=== PATIENT | female | born 1975 | race Two or more races ===

== ENCOUNTER 2017-11-24 13:17 | Inpatient (IN) | payer OTHER ==
[2017-11-24] MEDS ORDERED: IPRATROPIUM/ALBUTEROL 3 ML DEYVIAL ONE (16:09)
[2017-11-24] MEDS ORDERED: NS 1,000 ML IV ONE ×2 (16:17→18:44)
[2017-11-24] MEDS ORDERED: IPRATROPIUM/ALBUTEROL 3 ML DEYVIAL IH ONE (16:17)
--- NOTE | 2017-11-24 16:23 | EDPHY ---
H & P Stated Complaint: fever, cough, diarrhea Time Seen by Provider: 11/24/17 15:39 HPI/ROS: CHIEF COMPLAINT: Cough, shortness of breath HISTORY OF PRESENT ILLNESS: The patient is a 42 y/o female arriving with her complaining of diarrhea, fever, and cough over the last week. Last Thursday, 6 days ago, she developed non-bloody diarrhea, which has continued throughout the week. She reports episodes every 20 minutes, but several of these were actually just passing gas. By , she developed a fever that has increased throughout the weekend to as high as "104.9F." Two days ago she developed a dry cough and by last night she began to feel short of breath. Her says she slept in 20-minute increments due to her cough and shortness of breath and during coughing episodes it looks "like she's not getting enough air." Her fever is down to 100F today. She has not been using any antipyretics because she cannot swallow pills. She has associated myalgias. She also notes her menstrual period began last night and is much heavier than normal. She normally has regular periods and does not use oral control. She has not passed any clots. No respiratory disease history. No recent international travel. No chills, chest pain, palpitations, vomiting, abdominal pain, urinary complaints, headache, lightheadedness. REVIEW OF SYSTEMS: Aside from elements discussed in the HPI, a comprehensive 10-point review of systems was reviewed and is negative. PAST MEDICAL HISTORY: Denies SOCIAL HISTORY: at bedside. Smoker. Lives in [place]. No PCP. VITAL SIGNS: Reviewed by me. Tachycardic, temp 37.4, O2 sat 94%. GENERAL: Well-developed, well-nourished, frequent cough. HEENT: Atraumatic. Eyes: No icterus, no injection. Mouth: slightly dry mucous membranes. No erythema or lesions. Neck: supple with no adenopathy. LUNGS: Dimished breath sounds thoughout, slighly wheezy cough. Speaking in full sentences. CARDIAC: Tachycardic rate and regular rhythm, no rubs, murmurs or gallops. ABDOMEN: Soft, nontender, nondistended, bowel sounds normal. BACK: No CVA tenderness. EXTREMITIES: No trauma. No edema. Range of motion is normal throughout. NEURO: Alert and oriented, grossly nonfocal. SKIN: Warm and dry, no rash. PSYCHIATRIC: Normal mentation, no agitation. Portions of this note were transcribed by a medical coder. I personally performed a history, physical exam, medical decision making, and confirmed accuracy of information the transcribed note. - Personal History LMP (Females 10-55): Now Current Tetanus/Diphtheria Vaccine: No Current Tetanus Diphtheria and Acellular Pertussis (TDAP): No - Medical/Surgical History Hx Asthma: No Hx Chronic Respiratory Disease: No Hx Diabetes: No Hx Cardiac Disease: No Hx Renal Disease: No Hx Cirrhosis: No Hx Alcoholism: No Hx HIV/AIDS: No Hx Splenectomy or Spleen Trauma: No Other PMH: ovarian cyst - Social History Smoking Status: Current every day smoker Constitutional: Initial Vital Signs Temperature (C) 37.2 C 11/24/17 13:28 Heart Rate 112 H 11/24/17 13:28 Respiratory Rate 16 11/24/17 13:28 Blood Pressure 124/87 H 11/24/17 13:28 O2 Sat (%) 94 11/24/17 13:28 O2 Delivery Mode Nasal Cannula O2 (L/minute) 3 Allergies/Adverse Reactions: doxycycline Allergy (Verified 11/24/17 19:41) Vomiting Home Medications: Medication Instructions Recorded Acetaminophen [Tylenol 325mg (*)] 650 mg PO Q4HRS PRN tab 11/26/17 levOFLOXACIN [Levofloxacin] 750 mg PO DAILY #150 ml 11/26/17 Medical Decision Making - Diagnostics Imaging Results: CXR: Impression: 1. Left lower lobe consolidation/pneumonia posteriorly. 2. Prominence of perihilar interstitial markings and peribronchial cuffing. Findings are nonspecific but can be seen with underlying bronchitis, reactive airway disease, or viral process. Dictated By: Carlos Manuel Edmondson MD Imaging: I viewed and interpreted images myself ED Course/Re-evaluation: Plan for IV, sepsis labs, EKG, chest x-ray. Duo neb and 1L IV NS administered. Chest x-ray: left lower/posterior pneumonia. 750mg IV Levaquin administered. Lactic 1.2. Patient was in the process of being discharged and attempted to ambulate to the bathroom. She became lightheaded, near-syncopal, and tachycardic around 120. Reassessed patient and recommended admission, which she agrees to. Spoke with hospitalist service. Dr. Portillo accepts admission. Differential Diagnosis: Diff dx of patients symptom complex considered including but not limited to influenza, pneumonia, dehydration, volume loss, bronchitis, asthma exacerbation , copd exacerbation, URI. Consult/Admit Bed Type: Dr Portillo, [facility] - Data Points Laboratory Results: Laboratory Results 11/25/17 04:30 11/25/17 04:30 Microbiology Results: MICROBIOLOGY 11/24/17 16:17 Blood Blood Culture - Preliminary 11/24/17 17:15 Blood Blood Culture - Preliminary Medications Given: Discontinued Medications Albuterol/Ipratropium (Duoneb) 3 ml IH EDNOW ONE Stop: 11/24/17 16:18 Last Admin: 11/24/17 16:17 Dose: 3 ml Albuterol/Ipratropium (Duoneb) 3 ml IH Q6HRS EFRAIN Stop: 05/24/18 09:39 Last Admin: 11/26/17 12:49 Dose: Not Given Benzonatate (Tessalon Pearles) 100 mg PO TID PRN PRN Reason: Cough, Mild Stop: 05/23/18 23:34 Last Admin: 11/24/17 23:57 Dose: 100 mg Guaifenesin/Codeine Phosphate (Robitussin Ac) 10 ml PO Q6HRS PRN PRN Reason: Cough, Moderate Stop: 05/23/18 23:34 Last Admin: 11/26/17 11:27 Dose: 10 ml Sodium Chloride (Ns) 1,000 mls @ 0 mls/hr IV ONCE ONE PRN Reason: Wide Open Stop: 11/24/17 16:18 Last Admin: 11/24/17 16:17 Dose: 1,000 mls Levofloxacin/Dextrose (Levaquin 750 Mg (Premix)) 150 mls @ 100 mls/hr IV EDNOW ONE PRN Reason: Protocol Stop: 11/24/17 18:14 Last Admin: 11/24/17 17:13 Dose: 150 mls Sodium Chloride (Ns) 1,000 mls @ 0 mls/hr IV ONCE ONE PRN Reason: Wide Open Stop: 11/24/17 18:45 Last Admin: 11/24/17 18:45 Dose: 1,000 mls Lactated Ringer's (Lr) 1,000 mls @ 100 mls/hr IV CONT EFRAIN Stop: 05/24/18 00:29 Last Admin: 11/25/17 02:06 Dose: 1,000 mls Levofloxacin (Levaquin) 750 mg PO Q24H EFRAIN PRN Reason: Protocol Stop: 12/25/17 16:59 Last Admin: 11/25/17 17:24 Dose: 750 mg Ondansetron HCl (Zofran Odt) 4 mg PO Q6H PRN PRN Reason: Nausea/Vomiting, Use 1st Stop: 05/23/18 20:57 Last Admin: 11/24/17 21:16 Dose: 4 mg Departure - Departure Disposition: [facility] Inpatient Acute Clinical Impression: Pneumonia Qualifiers: Pneumonia type: due to unspecified organism Laterality: left Lung location: lower lobe of lung Qualified Code(s): J18.1 - Lobar pneumonia, unspecified organism Condition: Fair Report Scribed for: Dipika Santillan Report Scribed by: Aurora Dennis Date of Report: 11/24/17 Time of Report: 16:24
[2017-11-24 16:30] LABS: PLATELET COUNT 265 10^3/uL (150-400)
[2017-11-24 16:41] LABS: INR 1.2 (0.83-1.16); PROTIME(PATIENT) 15.4 SEC (12.0-15.0)
[2017-11-24] MEDS ORDERED: ONDANSETRON DISINTEGRATING 4 MG TAB PO PRN (20:58)
[2017-11-24] MEDS ORDERED: ACETAMINOPHEN 325 MG TAB PO PRN (23:31)
[2017-11-24] MEDS ORDERED: diphenhydrAMINE 25 MG CAP PO PRN (23:31)
[2017-11-24] MEDS ORDERED: ONDANSETRON 4 MG/2 ML VIAL IVP PRN (23:31)
[2017-11-24] MEDS ORDERED: BENZONATATE 100 MG CAP PO PRN (23:35)
[2017-11-25] MEDS ORDERED: LR 1,000 ML IV SCH (00:30)
[2017-11-25] MEDS: guaiFENesin/CODEINE PHOS 10 ML UDCUP PO PRN ×3 (02:06→20:38)
--- NOTE | 2017-11-25 05:09 | GHP ---
[f rep st] HISTORY AND PHYSICAL DATE OF ADMISSION: 11/24/2017 SOURCE: Patient provides history, appears reliable. at bedside supplements details. EMR re viewed and case discussed with accepting provider. CHIEF COMPLAINT: Cough and shortness of breath, diarrhea. HISTORY OF PRESENT ILLNESS: This is a very pleasant 42-year-old female with no significant past [facility] history, who presents to the emergency department with complaints of 24 hours of coughing, fever, diarrhea, and shortness of breath. Patient with a reported elevated temperature of 104 at home. Flavio glynn reports that she has been having some upper respiratory-type symptoms for the past week with pr ogressive shortness of breath in the last 24 hours. Patient also reports some increasing muscle ache s, particularly in her back, a headache that developed today worse with coughing. No changes in visi on or focal deficits. Patient also endorses heavier periods than previously experienced. Patient re ports that she has soaked through multiple pads today since her period started 24 hours. She has als o been passing some clots. She denies any abdominal pain and no more bloating than usual during her menstrual cycle. Patient also with history of recent increasing hot flashes and sweats. She denies any chills. Patient with multiple watery diarrhea. No melena or hematochezia are noted. REVIEW OF SYSTEMS: Negative except as noted above. ALLERGIES: Doxycycline. HOME MEDICATIONS: None. PAST MEDICAL HISTORY: Significant for remote ovarian cyst, status post cystectomy. Otherwise, no ac cecelia medical issues. Patient has been endorsing some perimenopausal flushing in the recent months. PAST SURGICAL HISTORY: Significant for laparoscopy with ovarian cystectomy. FAMILY HISTORY: Negative for any lung disease or chronic medical issues including diabetes, hyperten linda. SOCIAL HISTORY: Patient is . Lives with her . She is a smoker, smoking approximately 1 pack per day. She also drinks daily alcohol of liquor-based drinks of 4 per day. Her last alcoho l intake was approximately a week ago, and she denies any recent history of tremors. Marijuana use is daily without any reported use of other illicit drugs. CODE STATUS: Full. PHYSICAL EXAMINATION: VITAL SIGNS: Upon arrival to the emergency department was 124/87, heart rate 112, respiratory rate 16, O2 saturation 94% on room air with a temperature 37.2. Vitals at time avai lable at interview, blood pressure 115/67, heart rate 85, respiratory rate 16, O2 saturation 92% on 3 L by nasal cannula. Temperature is 36.9. GENERAL: No acute distress. Very pleasant adult female, who is lying in bed, wakes easily to name. HEAD: Normocephalic, atraumatic. EYES: Extraocular mu scles are intact. Pupils equal, round, with decreased reactivity to light bilaterally, but symmetric . No scleral icterus or conjunctival injection. ENT: Mucous membranes appear dry. Dentition in fa ir condition. No oropharyngeal erythema or exudates. NECK: Supple. Trachea midline. CV: Regular rate and rhythm. No murmurs, rubs, or gallops. RESPIRATORY: Unlabored breathing. Patient does castillo ve intermittent nonproductive cough that does sound congested. LUNGS: Clear to auscultation bilater ally. No wheezes, rales, or rhonchi. Slightly diminished at the bases. ABDOMEN: Obese, soft, nont cooper to palpation. No rebound, guarding, or masses appreciated. Patient with some mild distention. : No Payne in place. No suprapubic tenderness to palpation. No CVA tenderness. EXTREMITIES: Patient without any cyanosis, clubbing, or edema. Patient has 2+ pedal pulses bilaterally and symmet quintin. NEURO: Grossly nonfocal. No facial drooping. Moves all extremities. Sits up independently. PSYCH: Patient's thought process and content are appropriate. LABORATORY DATA: WBC is 12.17, H and H 16.5 and 43.7, and platelet count 265. MCV 91.8. No bands. PT is 15.4. INR is 1.20. PTT is 27.1. VBG lactic acid 1.2. Sodium is 132, potassium 3.6, chloride 101, CO2 of 15, anion gap 16, BUN 12, creatinine 0.7, GFR grea ter than 60, glucose is 114, calcium 9.2, total bilirubin 0.8. Beta-hCG is negative. PCR for flu is negative for both A and B. blood cultures x2 pending. GI PCR is pending. IMAGING DATA: Chest x-ray: Image report reviewed by me, significant for left lower lobe pneumonia p osteriorly. Peribronchiolar cuffing in the perihilar region and prominence of perihilar interstitial markings wound. ASSESSMENT AND PLAN: Pleasant 42-year-old female, who presents with complaints of cough, shortness o f breath, fever, and diarrhea. 1. Left lower lobe pneumonia. Patient has been started on Levaquin. Will continue this at respirat ory dosing with history of longstanding tobacco abuse per the patient with likely some underlying ear ly chronic obstructive pulmonary disease. There is no evidence of exacerbation or wheezing on exam a t this time. She also has some acute bronchitis, unclear if perhaps the patient has had a postviral pneumonia. Her flu is negative at this time. Patient does not meet sepsis criteria; qSOFA score is 0. Blood cultures are pending. Continue with Levaquin and supportive care. Will titrate patient of f oxygen. She has not had any documented episodes of hypoxia. Will try room air challenge tomorrow with exertional pulse ox. 2. Acute bronchitis. As above. 3. Diarrhea, likely viral in etiology. GI PCR is pending. Continue with supportive care and rehydr ation. 4. Hyponatremia is likely related to hypovolemia in setting of diarrhea and respiratory losses. Con tinue with IV fluid supplementation. Repeat a BMP in the morning. 5. Metrorrhagia. Patient is describing possibly some perimenopausal flushing, and this could be aff ecting her cycles. Her H and H are within normal limits at this time. Will monitor CBC in the [facility] for any development of anemia. Will also check a TSH. Otherwise, anticipate the patient should b e able to follow up with her PCP or infant caregiver after discharge if she continues to experience any f urther issues as long as she remains stable. Do not anticipate the patient will require inpatient ul trasound or consultation on this at this time. 6. Perimenopausal flushing. Support care. Patient does report a family history of relatively early menopause with mother experiencing symptoms also in her early 40s. 7. Daily alcohol use. Patient reports last intake was a week ago. No evidence of withdrawal at thi s time. Will monitor closely, but patient appears to be beyond need for CIWA monitoring at this time . 8. Tobacco abuse. Cessation was advised. Patient declines a NicoDerm patch. 9. Fluids, electrolytes, and nutrition. Continue LR for IV supplementation. Diet as tolerated. El ectrolytes will be monitored and replaced as needed. 10. Prophylaxis. SCDs, Lovenox. The patient should stay an additional day. 11. Code status is full. DISPOSITION: Patient has been admitted to observation status at this time. /[id number]/MODL
[2017-11-25 05:30] LABS: PLATELET COUNT 249 10^3/uL (150-400)
[2017-11-25] MEDS ORDERED: ENOXAPARIN 40 MG/0.4 ML SYR SC SCH (09:00)
--- NOTE | 2017-11-25 09:45 | HOSPPROG ---
Hospitalist Progress Note Assessment/Plan: 42 yo F w CAP CAP: levoflox day 2 td rao influenza neg AHRF: airspace disease in a smoker continue 02 add IS wheezing: scheduled duonebs today tobacco: counselled cessation proph: lmwh dispo: not ready to go change to inpatient Subjective: cxr w LL pna (interp by me) Objective: Vital Signs Temp Pulse Resp BP Pulse Ox 36.6 C 80 20 105/66 95 11/25/17 07:41 11/25/17 07:41 11/25/17 07:41 11/25/17 07:41 11/25/17 07:41 Microbiology 11/24/17 23:52 Gastrointestinal Tract Panel (PCR) - Final Stool No Organism Detected Laboratory Results 11/25/17 04:30 11/25/17 04:30 11/24/17 11/25/17 11/26/17 05:59 05:59 05:59 Intake Total 2700 Balance 2700 PT 15.4 SEC (12.0-15.0) H 11/24/17 16:19 INR 1.20 (0.83-1.16) H 11/24/17 16:19 - Physical Exam Constitutional: no apparent distress, appears nourished Eyes: PERRL, anicteric sclera Ears, Nose, Mouth, Throat: moist mucous membranes, hearing normal Cardiovascular: regular rate and rhythym, no murmur, rub, or gallop Respiratory: no respiratory distress, other (crackles at L base, diffuse wheezes , sig coughing w deep inspiration) Gastrointestinal: normoactive bowel sounds, soft, non-tender abdomen Genitourinary: no bladder fullness, No esposito in urethra Skin: warm, normal color Musculoskeletal: full muscle strength, no muscle tenderness Neurologic: AAOx3 ICD10 Worksheet Patient Problems: Problems Problem Status Onset Pneumonia Acute
[2017-11-25] MEDS: IPRATROPIUM/ALBUTEROL 3 ML DEYVIAL IH SCH ×4 (10:11→22:11)
--- NOTE | 2017-11-25 14:13 | PDMN ---
Medical Necessity Medical necessity: M282 cPNA- pt still with wheezing, ongoing duonebs, IV fluids - needed - minimal PO, O2 2L 94% > 2 midnights
--- NOTE | 2017-11-25 15:52 | ASMTCMCOM ---
CM Note CM Note Notes: Pt lives at home with , in for RLL pneumonia. No needs identified, anticipate will dc home when medically stable. Cm available for any changes. DC Plan: Home independent Date Signed: 11/25/2017 03:51 PM Electronically Signed By:Vanessa Lemos RN
[2017-11-26] MEDS: IPRATROPIUM/ALBUTEROL 3 ML DEYVIAL IH SCH ×2 (05:55→12:49)
[2017-11-26 07:17] VITALS: RESP 18
--- NOTE | 2017-11-26 11:22 | PDHOMEO2F ---
Home Oxygen Face to Face Home Orders: I certify that a physician or a nurse practitioner or physician's accounting assistant has had a [id number] encounter with this patient on the date of this order due to the diagnosis listed, which relates to the primary reason the patient requires home oxygen. Alternative treatments have been tried, or considered, and deemed ineffective. It is anticipated that supplemental oxygen will result in improvement with treatment. Home oxygen qualifying diagnosis: PNA SpO2 on room air (%): 87 Frequency of home oxygen needed: continuous Home oxygen liters per minute: 3 Home oxygen delivery device: nasal cannula Concentrator: Yes E-tanks for mobility and back up: Yes If ordering portable O2, is the patient mobile in the home?: Yes I certify that, based on these findings, the home oxygen is medically necessary for this patient for the following length of time. Length of time home oxygen needed: 1 month
[2017-11-26] MEDS: guaiFENesin/CODEINE PHOS 10 ML UDCUP PO PRN (11:27)
[2017-11-26 11:30] VITALS: BP 128/67; TEMP 98.4
[2017-11-26 13:21] VITALS: PULSE 76; O2SAT 91
--- NOTE | 2017-11-26 14:39 | ASDISCHSUM ---
Discharge Information Plan Status:Home with No Needs Medically Cleared to Leave: Discharge Date:11/26/2017 01:40 PM CM D/C Disposition: ADT D/C Disposition:Home, Routine, Self-Care Projected Discharge Date:11/26/2017 01:40 PM Transportation at D/C: Discharge Delay Reason: Follow-Up Date:11/26/2017 01:40 PM Discharge Slot: Final Diagnosis: Placement Information Patient Contact Information Contact Name:THERESA Relationship: Address:[address] City:[place] Alternate Phone: State/Zip Code:[place] [address] Email: Financial Information Financial Class:[employer] [facility] Primary Plan Desc:[facility] Primary Plan Number:[id number] Secondary Plan Desc: Secondary Plan Number: Assessment Information BC CM Progress Note CM Note CM Note Notes: Pt lives at home with , in for RLL pneumonia. No needs identified, anticipate will dc home when medically stable. Cm available for any changes. DC Plan: Home independent Date Signed: 11/25/2017 03:51 PM Electronically Signed By:Vanessa Lemos RN Case Management Discharge Plan Note Case Management Discharge Discharge Order Complete? Answers: Yes Patient to Obtain Answers: via Family Medications Transportation Arranged Answers: Family/Friends Discharge Comments Notes: Today SWer offered to see Pt. for support and to give her ETOH resources. Per RN, Pt. declined. Pt. d/c'ed independently today to . Date Signed: 11/26/2017 02:38 PM Electronically Signed By:Petra Cascone, PATIENT ACCOUNT SPECIALIST Intervention Information
--- NOTE | 2017-11-26 15:37 | GDS ---
[f rep st] DISCHARGE SUMMARY DISCHARGE DIAGNOSES: 1. Community-acquired pneumonia. 2. Acute hypoxemic respiratory failure. 3. Chronic tobacco use. PHYSICAL EXAM: GENERAL: The patient is alert. VITAL SIGNS: Afebrile at 36.9, pulse is 87, respira tory rate is 18, blood pressure is 128/67, she is saturating 91% on room air. I have seen and evalua fransico the patient on the day of discharge. HOSPITAL COURSE: Ms. Hall is a 42-year-old female who presented to the emergency room with compla ints of shortness of breath. She was evaluated and diagnosed with community-acquired pneumonia as we ll as acute hypoxemic respiratory failure. She was treated with antibiotic therapy during this hospi talization and has been transitioned to oral Levaquin in the outpatient setting. Her acute hypoxemic respiratory failure has resolved during this hospital course. She is no longer requiring supplement al oxygen. She does have a significant history of tobacco abuse and she has received significant GCW education and counseling with regard to this. She is in agreement to attempt to discontinue u se of further tobacco products. She will be discharged home independently with her . FOLLOWUP: Will be with primary care provider of her choice, which she will establish care with. DISCHARGE MEDICATIONS: Please refer to EMR form. I have provided the patient a prescription for Lev aquin at the time of disposition. There are no pending studies. I have spent greater than 35 minutes in the care, coordination, and ma nagement of this patient's discharge. /[id number]/MODL
== END 2017-11-26 13:40 | disposition home or self-care (01) | DRG 193 ==
LOC: F3E 19:45 → OBSVTOIN 11-25 09:46
PROVIDERS: ADMIT Hospitalist; ATTEND Hospitalist
DX: J18.8 Other pneumonia, unspecified organism (principal); J96.01 Acute respiratory failure with hypoxia; E87.1 Hypo-osmolality and hyponatremia; A08.4 Viral intestinal infection, unspecified; N92.1 Excessive and frequent menstruation with irregular cycle; N95.1 Menopausal and female climacteric states; Z72.0 Tobacco use; Z72.89 Other problems related to lifestyle
CPT/HCPCS: 96374; G0378; J1956